=== PATIENT | male | born 1965 | race Caucasian/White ===

== ENCOUNTER 2019-05-17 21:52 | Inpatient (IN) | payer OTHER ==
[~2019-05-17] VITALS: Ht 172.7 cm; Wt 110.4 kg
--- NOTE | 2019-05-17 22:00 | NUR ---
PT IS AMBULATORY WITH STABLE GAIT, ASSISTED BY CANE PT C/O HEMATURIA SINCE 12NOON PT DENIES PAIN PT DENIES POLY/OLIGURIA DENIES TRAUMA NOR SURGERIES TO THE SITE MONITORED ACCORDINGLY SIDERAILSX2 UP BED AT LOWEST POSITION MD AT BEDSIDE FOR HX AND PHYSICAL
[2019-05-17] MEDS ORDERED: FOLI1TAB16 PO (22:12)
[2019-05-17] MEDS ORDERED: PHEN100C4 PO (22:12)
[2019-05-17] MEDS ORDERED: ASPI81TA31 PO (22:12)
[2019-05-17] MEDS ORDERED: METH2.5T PO (22:12)
[2019-05-17] MEDS ORDERED: IV NORMAL SALINE 1000 ML BAG IV ONE (22:30)
--- NOTE | 2019-05-17 22:54 | NUR ---
COTTAGE SUPERVISOR AT BEDSIDE
[2019-05-17 22:57] LABS: BASOPHILS # (AUTO) 0.1 K/uL (0.0-8.0); BASOPHILS % (AUTO) 0.7 % (0.0-2.0); EOSINOPHILS % (AUTO) 0.3 % (0.0-7.0); HEMATOCRIT 38.1 % (36.7-47.1); LYMPHOCYTES # (AUTO) 1.7 K/uL (20.0-40.0); LYMPHOCYTES % (AUTO) 11.6 % (20.5-51.5); MEAN CORPUSCULAR HEMOGLOBIN 32.7 uug (23.8-33.4); MEAN CORPUSCULAR HGB CONC 34 g/dL (32.5-36.3); MEAN CORPUSCULAR VOLUME 95.7 fL (73.0-96.2); MONOCYTES # (AUTO) 1.3 K/uL (2.0-10.0); MONOCYTES % (AUTO) 9.1 % (0.0-11.0); NEUTROPHILS # (AUTO) 11.5 K/uL (1.8-8.9); NEUTROPHILS % (AUTO) 78.3 % (38.5-71.5); PLATELET COUNT (AUTO) 239 K/uL (152-348); RED BLOOD CELL COUNT(AUTO) 3.98 MIL/uL (4.06-5.63); WHITE BLOOD COUNT (AUTO) 14.7 K/uL (3.6-10.2)
[2019-05-17 23:01] LABS: CREATININE 1.2 mg/dL (0.6-1.3); POTASSIUM 4.1 mmol/L (3.5-5.1)
[2019-05-17 23:07] LABS: BILIRUBIN,DIRECT 0.1 mg/dL (0.0-0.2); BILIRUBIN,TOTAL 0.4 mg/dL (0.2-1.0)
[2019-05-18] MEDS ORDERED: CEFTRIAXONE 1 G in IV DEXTROSE 5% 50 ML IV ONE (00:30)
--- NOTE | 2019-05-18 00:32 | NUR ---
urine collected via straight cath. sent to lab
--- NOTE | 2019-05-18 00:34 | NUR ---
Jinny RIVERS ([facility]) ON THE PHONE WITH ERMD DX: HEMATURIA
[2019-05-18] MEDS ORDERED: CEFTRIAXONE /D5W 50ML IVPB **ER PYXIS IV ONE (00:39)
[2019-05-18 00:53] LABS: *BILIRUBIN,URIN 1+ (NEGATIVE); *BLOOD, URINE 2+ (NEGATIVE); *CLARITY,URINE SLIGHTLY CLOUDHY (CLEAR); *COLOR,URINE AMBER (YELLOW); *KETONES,URINE TRACE (NEGATIVE); LEUKOCYTE ESTERASE ,URINE NEGATIVE (NEGATIVE); NITRITE, URINE NEGATIVE (NEGATIVE); PH,URINE 5.5 (5.0-8.0); UGLUCOSE NEGATIVE (NEGATIVE)
[2019-05-18 00:58] LABS: BACTERIA,URINE NONE SEEN /HPF (NONE SEEN); MUCUS,URINE MODERATE /LPF (0-FEW); SQUAMOUS EPITHELIAL CELL,UR MODERATE /HPF (NONE SEEN); WBC,URINE 0-3 /HPF (0-3)
[2019-05-18] MEDS ORDERED: IV D5 1/2 NS 1000 ML 1,000 ML IV PRN ×2 (01:14→01:30)
[2019-05-18] MEDS ORDERED: ONDANSETRON 4 MG/2 ML VIAL IV PRN ×2 (01:15→01:30)
[2019-05-18] MEDS ORDERED: MAGNESIUM HYDROXIDE 30 ML LIQUID UDC PO PRN ×2 (01:15→01:30)
[2019-05-18] MEDS ORDERED: ACETAMINOPHEN 325 MG TABLET PO PRN ×2 (01:15→01:30)
[2019-05-18] MEDS ORDERED: Z GUARD REMEDY PASTE 57 GM TUBE TOP PRN ×2 (01:15→01:30)
[2019-05-18] MEDS ORDERED: METRONIDAZOLE 500 MG/NS 100 ML PIGGYBACK IV ONE (01:15)
[2019-05-18] MEDS ORDERED: VANCOMYCIN 1G/D5W 200 ML PIGGYBACK IV ONE (01:15)
[2019-05-18] MEDS ORDERED: HYDROCODONE/APAP 5-325MG TABLET PO PRN ×2 (01:15→01:30)
[2019-05-18] MEDS ORDERED: VANCOMYCIN IV 200 ML ONE (01:27)
[2019-05-18] MEDS ORDERED: METRONIDAZOLE 500 MG/NS 100ML 100 ML IV ONE (01:27)
--- NOTE | 2019-05-18 01:33 | NUR ---
Dr Rachel speaking with Jeffrey Chappell PRODUCTION SKI REPAIRER for update on patient's status.
--- NOTE | 2019-05-18 01:34 | NUR ---
DUYEN ON THE PHONE W/ TITA (EPIC)
[2019-05-18] MEDS ORDERED: IOHEXOL 300MG/ML 100 ML INFUS..BTL ONE (02:30)
[2019-05-18] MEDS ORDERED: SWABABLE VALVE TRANSFER SET EA MC ONE (02:30)
[2019-05-18] MEDS ORDERED: IV NORMAL SALINE 250 ML IV ONE (02:30)
--- NOTE | 2019-05-18 02:35 | NUR ---
Pt. admitted to TELE RM 304 , under care of [facility] completed SIGNED /COSIGNED PT WILL BE PICKED UP BY MANAGER FLOAT FOR CT W/ CONTRAST OF ABD AND PELVIS THEN TRANSPORTED TO ROOM RN RECEIVED HAND OFF AND SBAR ( RUDI Jovel
--- NOTE | 2019-05-18 03:20 | NUR ---
Admitted a 53 years old patient with Diagnosis of Fever. Patient AAOX3, but Farsi speaking only. at bedside and translated for the patient. In no acute distress. Complained of abdominal pain. Will give pain medication per order. IV site on right AC intact and patent. IV ABX infusing during admission that was started at the ER. Routine admission care done. Plan of care initiated. Safety measure initiated and call zendejas within reach.
[2019-05-18 03:55] VITALS: BP 140/85
--- NOTE | 2019-05-18 06:06 | NUR ---
Patient lying comfortably in bed. No further complain of abdominal pain. at bedside. In no acute distress. IVF infusing. No adverse reaction noted from IV ABX. Needs assessed and attended to. Safety measure maintained and call zendejas within reach.
[2019-05-18 06:55] LABS: BILIRUBIN,TOTAL 0.4 mg/dL (0.2-1.0); CREATININE 0.9 mg/dL (0.6-1.3); MAGNESIUM 1.9 mg/dL (1.8-2.4); POTASSIUM 3.6 mmol/L (3.5-5.1); TOTAL PROTEIN, SERUM 7.1 g/dL (6.4-8.2)
[2019-05-18 07:03] LABS: BASOPHILS # (AUTO) 0.1 K/uL (0.0-8.0); BASOPHILS % (AUTO) 1.3 % (0.0-2.0); EOSINOPHILS % (AUTO) 0.4 % (0.0-7.0); HEMATOCRIT 35.3 % (36.7-47.1); HEMOGLOBIN 11.9 g/dL (12.5-16.3); LYMPHOCYTES # (AUTO) 1.5 K/uL (20.0-40.0); LYMPHOCYTES % (AUTO) 13.3 % (20.5-51.5); MEAN CORPUSCULAR HEMOGLOBIN 32.6 uug (23.8-33.4); MEAN CORPUSCULAR HGB CONC 34 g/dL (32.5-36.3); MEAN CORPUSCULAR VOLUME 96.5 fL (73.0-96.2); MONOCYTES % (AUTO) 9.2 % (0.0-11.0); NEUTROPHILS # (AUTO) 8.6 K/uL (1.8-8.9); NEUTROPHILS % (AUTO) 75.8 % (38.5-71.5); PLATELET COUNT (AUTO) 205 K/uL (152-348); RED BLOOD CELL COUNT(AUTO) 3.65 MIL/uL (4.06-5.63); WHITE BLOOD COUNT (AUTO) 11.3 K/uL (3.6-10.2)
[2019-05-18 07:04] LABS: PHENYTOIN (DILANTIN) 4.9 ug/mL (10.0-20.0)
--- NOTE | 2019-05-18 07:19 | NUR ---
Telephone call from [facility], spoke to Stephy. Stated that engine test cell technician had added impression on the abd/pelvis CT that was done this morning as follow: As focal consolidation in the dependent left lower lobe, this could be the bases of pneumonia or aspiration, clinical correlation and follow up to resolution is recommended.
--- NOTE | 2019-05-18 07:25 | NUR ---
RECEIVED PATIENT IN BED, ASLEEP, EASY TO WAKE UP. AOX4. AT BEDSIDE. RT. AC IV WITH D51/2NS RUNNING AT 75C/HR, INTACT AND FLUSHING WELL. DENIES SOB, CHEST PAIN OR ANY OTHER PAIN AT THIS TIME. SAFETY AND FALL PREVENTION IN PLACE. BED LOW AND LOCKED. CALL LIGHT IN REACH. WILL CONTINUE TO MONITOR.
[2019-05-18] MEDS: PHENYTOIN SODIUM EXTENDED 100 MG CAPSULE.SA PO SCH ×2 (08:49→18:04)
[2019-05-18] MEDS ORDERED: PHENYTOIN SODIUM EXTENDED 100 MG CAPSULE.SA PO SCH (09:00)
[2019-05-18] MEDS ORDERED: FOLIC ACID 1 MG TABLET PO SCH ×2 (09:00)
[2019-05-18] MEDS ORDERED: PANTOPRAZOLE SODIUM 40 MG VIAL IV SCH ×2 (09:00)
[2019-05-18] MEDS ORDERED: ASPIRIN 81 MG TAB.CHEW PO SCH (09:00)
[2019-05-18] MEDS ORDERED: VANCOMYCIN IV 1,750 MG in IV DEXTROSE 5% 500 ML IV SCH (10:00)
[2019-05-18 11:05] VITALS: BP 129/81
--- NOTE | 2019-05-18 14:06 | NUR ---
Clinical Pharmacy Note: Vancomycin Pharmacy to Dose Subjective: To start vancomycin in this 53 y/o male for indication of empiric therapy (fevers, elevated wbc) Objective: weight 110kg height 172cm BUN/SCr 16/1.2 wbc 14.7 temp 100.8 1gm vanco given in ER 05/18 @0134 Assessment/Plan Will start regimen of vanco 1750mg q16h for estimated trough of 15, first dose today at 1000. Trough due before 4th scheduled dose (not ordered yet). Will follow and adjust if condition were to change. Will monitor
[2019-05-18 15:22] VITALS: BP 134/82
[2019-05-18] MEDS ORDERED: LEVO750T21 PO (16:29)
[2019-05-18] MEDS ORDERED: PHEN100C4 PO ×2 (16:29→16:45)
--- NOTE | 2019-05-18 19:01 | NUR ---
PATIENT IN BED, AWAKE. AOX4. DENIES SOB, CHEST PAIN OR ANY OTHER PAIN THROUGHOUT THE SHIFT. SAFETY AND FALL PREVENTION IN PLACE. BED LOW AND LOCKED. CALL LIGHT IN REACH. WILL REPORT TO ONCOMING NURSE.
[2019-05-19] MEDS ORDERED: CEFTRIAXONE 1 G in IV DEXTROSE 5% 50 ML IV SCH ×4
== END 2019-05-18 20:54 | disposition home or self-care (01) | DRG 463 ==
LOC: ER 21:54 → TELE3 05-18 03:10 → MEDSURG3 05-18 03:21
PROVIDERS: ADMIT Hospitalist; ATTEND Registered Nurse
DX: N12 Tubulo-interstitial nephritis, not specified as acute or chronic (principal); E66.01 Morbid (severe) obesity due to excess calories; M51.16 Intervertebral disc disorders with radiculopathy, lumbar region; E78.5 Hyperlipidemia, unspecified; R29.6 Repeated falls; Z68.37 Body mass index [BMI] 37.0-37.9, adult; Z85.841 Personal history of malignant neoplasm of brain; F32.9 Major depressive disorder, single episode, unspecified; R31.29 Other microscopic hematuria; M48.56XD Collapsed vertebra, not elsewhere classified, lumbar region, subsequent encounter for fracture with routine healing; Z79.82 Long term (current) use of aspirin; G40.909 Epilepsy, unspecified, not intractable, without status epilepticus; M41.9 Scoliosis, unspecified
CPT/HCPCS: 36415; 70030-TC; 71045; 83605; 83690; 83735; 84100; 85025; 85610; 85730; 87040; 87086; 87400; 93005; A4663; C1758; C9113; G0378; J0696; J3370; J3490; J7030; J7050; J7060; Q9967

== ENCOUNTER 2019-10-03 17:54 | Emergency (ER) | payer OTHER ==
[~2019-10-03] VITALS: Ht 170.2 cm; Wt 95.3 kg
[2019-10-03] MEDS ORDERED: MAG HYDROX/AL HYDROX/SIMETH 30 ML LIQUID UDC PO ONE (18:15)
[2019-10-03] MEDS ORDERED: ONDANSETRON 4 MG/2 ML VIAL IV ONE (18:15)
[2019-10-03] MEDS ORDERED: LIDOCAINE VISCUS 2% 15 ML UDC MM ONE (18:15)
[2019-10-03] MEDS ORDERED: FAMOTIDINE. 20 MG/2 ML VIAL IV ONE ×2 (18:15→18:23)
[2019-10-03] MEDS ORDERED: LIDOCAINE VISCUS 2% 15 ML UDC ONE (18:23)
[2019-10-03] MEDS ORDERED: MAG HYDROX/AL HYDROX/SIMETH 30 ML LIQUID UDC ONE (18:23)
[2019-10-03] MEDS ORDERED: ONDANSETRON 4 MG/2 ML VIAL ONE (18:23)
[2019-10-03 18:25] LABS: BASOPHILS # (AUTO) 0.1 K/uL (0.0-8.0); EOSINOPHILS # (AUTO) 0.2 K/uL (0.0-0.7); EOSINOPHILS % (AUTO) 2.4 % (0.0-7.0); HEMATOCRIT 37.5 % (36.7-47.1); HEMOGLOBIN 13.3 g/dL (12.5-16.3); LYMPHOCYTES # (AUTO) 2.2 K/uL (20.0-40.0); LYMPHOCYTES % (AUTO) 33.5 % (20.5-51.5); MEAN CORPUSCULAR HEMOGLOBIN 32.9 uug (23.8-33.4); MEAN CORPUSCULAR HGB CONC 35 g/dL (32.5-36.3); MONOCYTES # (AUTO) 0.6 K/uL (2.0-10.0); MONOCYTES % (AUTO) 8.9 % (0.0-11.0); NEUTROPHILS # (AUTO) 3.5 K/uL (1.8-8.9); NEUTROPHILS % (AUTO) 54.2 % (38.5-71.5); PLATELET COUNT (AUTO) 228 K/uL (152-348); RED BLOOD CELL COUNT(AUTO) 4.03 MIL/uL (4.06-5.63); WHITE BLOOD COUNT (AUTO) 6.5 K/uL (3.6-10.2)
[2019-10-03 18:33] LABS: CREATININE 1.1 mg/dL (0.6-1.3); POTASSIUM 3.7 mmol/L (3.5-5.1)
--- NOTE | 2019-10-03 18:33 | NUR ---
Pt is in room #1b. dr Jensen evaluated the pt.
[2019-10-03 18:38] LABS: BILIRUBIN,DIRECT 0.1 mg/dL (0.0-0.2); BILIRUBIN,TOTAL 0.1 mg/dL (0.2-1.0)
--- NOTE | 2019-10-03 18:56 | NUR ---
REPORT GIVEN TO LIBRARIAN SPECIALIST DEL FROST.
--- NOTE | 2019-10-03 19:11 | NUR ---
Patient discharged to home in stable condition. Written and verbal after care instructions given. Patient verbalizes understanding of instructions. Stressed follow up or return to ER for worsening s/s. IV removed. Catheter intact and site benign. Pressure and 4x4 gauze applied to site. No bleeding noted.
[2019-10-03 19:13] VITALS: BP 131/87
== END 2019-10-03 19:26 | disposition home or self-care (01) ==
LOC: ER 17:56
DX: K21.0 Gastro-esophageal reflux disease with esophagitis (principal); Z85.841 Personal history of malignant neoplasm of brain; G40.909 Epilepsy, unspecified, not intractable, without status epilepticus; Z79.899 Other long term (current) drug therapy
CPT/HCPCS: 36415; 71045; 80048; 80076; 83690; 84484; 85025; 93005; 96374; 96375; 99285; J2405; J3490; 70030-TC; A4663